=== PATIENT | female | born 1985 | race Hispanic/Latino ===

== ENCOUNTER 2020-05-28 10:08 | Day surgery (SDC) | payer MEDICAID, OTHER ==
[2020-05-28 11:46] LABS: #Monocytes 0.8 10x3/uL (0.0-1.1); #Neutrophils 5.8 10x3/uL (1.5-8.4); %Basophils 0.2 % (0.0-2.0); %Eosinophils 0.5 % (0.0-6.0); %Lymphocytes 23.4 % (18.0-47.0); Mean Corpuscular HGB CONC 34.4 g/dL (32.0-36.0); Mean Corpuscular Hemoglobin 31.3 pg (27.0-33.0); Mean Corpuscular Volume 90.9 fl (81.6-98.3); Mean Platelet Volume 10.3 fl (7.4-10.4); Platelet Count 208 10x3/uL (150-450); RBC Distribution Width 13.9 % (11.5-14.5); Red Blood Cell (RBC) Count 3.84 10x6/uL (3.90-5.03); White Blood Cell (WBC) Count 8.8 10x3/uL (3.5-10.5)
[2020-05-28 11:57] LABS: ALT (SGPT) 15 U/L (8-55); AST (SGOT) 14 U/L (5-34); Albumin 3.2 g/dL (3.5-5.0); Alkaline Phosphatase 98 U/L (40-110); Anion Gap 13 mmol/L (10-20); BUN (Urea Nitrogen) 7 mg/dL (7.0-18.7); Bilirubin, Total 0.2 mg/dL (0.2-1.2); Calc. Creatinine Clearance 0 mL/min (70-130); Calcium 8.8 mg/dL (7.8-10.44); Carbon Dioxide 21 mmol/L (22-29); Chloride 109 mmol/L (98-107); Globulin 3.1 g/dL (2.4-3.5); Glucose 65 mg/dL (70-105); Potassium 3.7 mmol/L (3.5-5.1); Protein, Total 6.3 g/dL (6.0-8.3); Sodium 139 mmol/L (136-145)
[2020-05-28 12:20] VITALS: BMI 30.7
[2020-05-28] MEDS ORDERED: Betamet Acet/Betamet Na Ph 30 MG/5 ML VIAL IM SCH (14:00)
== END 2020-05-28 14:15 | disposition home or self-care (01) ==
LOC: CSHLD/OP 10:08
PROVIDERS: ATTEND Obstetrics & Gynecology
DX: O99.891 Other specified diseases and conditions complicating pregnancy (principal); R03.0 Elevated blood-pressure reading, without diagnosis of hypertension; Z3A.00 Weeks of gestation of pregnancy not specified
CPT/HCPCS: 36415; 80053; 82570; 84156; 85025; 99284; J0702

== ENCOUNTER 2020-05-29 14:01 | Day surgery (SDC) | payer BC, OTHER | END 2020-05-29 15:03 | disposition home or self-care (01) | LOC: CSHLD/OP 14:01 | PROVIDERS: ATTEND Obstetrics & Gynecology | DX: Z29.8 Encounter for other specified prophylactic measures (principal); Z3A.00 Weeks of gestation of pregnancy not specified | CPT/HCPCS: 96372; 99281 ==

== ENCOUNTER 2020-06-02 08:05 | Inpatient (IN) | payer BC, OTHER ==
[2020-06-02 08:32] VITALS: BMI 30.7
[2020-06-02] MEDS ORDERED: hydrALAZINE 20 MG/ML VIAL ONE (08:46)
[2020-06-02] MEDS: hydrALAZINE 20 MG/ML VIAL SLOW IVP PRN ×2 (08:57→23:40)
[2020-06-02] MEDS ORDERED: Magnesium Sulfate 20 gm/500 ml 20 GM/500 ML BAG ONE (09:18)
[2020-06-02] MEDS ORDERED: Calcium Gluc 4.6 MEQ/10 ML (100 MG/ML) SLOW IVP PRN (09:19)
[2020-06-02] MEDS ORDERED: Promethazine HCl 25 MG/ML VIAL IM PRN (09:19)
[2020-06-02] MEDS ORDERED: Butorphanol Tartrate 1 MG/ML VIAL SLOW IVP PRN (09:19)
[2020-06-02] MEDS ORDERED: Ondansetron PF 4 MG/2 ML Vial IVP PRN (09:19)
[2020-06-02] MEDS: Magnesium Sulfate 20 gm/500 ml 20 GM/500 ML BAG IVPB SCH ×2 (09:25→18:00)
[2020-06-02] MEDS ORDERED: Labetalol HCl 100 MG/20 ML VIAL SLOW IVP PRN (09:26)
[2020-06-02] MEDS ORDERED: hydrALAZINE 20 MG/ML VIAL SLOW IVP PRN (09:26)
[2020-06-02] MEDS ORDERED: Magnesium Sulfate 20 GM/WATER 500 ML BAG IVPB SCH (09:30)
[2020-06-02 10:12] LABS: Amphetamine Not Detected (NotDetected); Barbiturates Screen Not Detected (NotDetected); Benzodiazepine Screen Not Detected (NotDetected); Cocaine Metabolite Screen Not Detected (NotDetected); Methadone Not Detected (NotDetected); Methamphetamine Not Detected (NotDetected); Opiate Screen Not Detected (NotDetected); Oxycodone Screen Not Detected (NotDetected); Phencyclidine (PCP) Not Detected (NotDetected); THC/Cannabinoid Screen Not Detected (NotDetected); Tricyclic Screen Not Detected (NotDetected)
[2020-06-02 10:13] LABS: Hemoglobin 11.2 g/dL (12.0-15.5); Mean Corpuscular HGB CONC 33.5 g/dL (32.0-36.0); Mean Corpuscular Hemoglobin 30.3 pg (27.0-33.0); Mean Corpuscular Volume 90.3 fl (81.6-98.3); Mean Platelet Volume 11.5 fl (7.4-10.4); Platelet Count 188 10x3/uL (150-450); RBC Distribution Width 13.6 % (11.5-14.5); White Blood Cell (WBC) Count 12.5 10x3/uL (3.5-10.5)
[2020-06-02 10:19] LABS: ALT (SGPT) 21 U/L (8-55); AST (SGOT) 17 U/L (5-34); Alkaline Phosphatase 92 U/L (40-110); Anion Gap 15 mmol/L (10-20); BUN (Urea Nitrogen) 15 mg/dL (7.0-18.7); Bilirubin, Total 0.2 mg/dL (0.2-1.2); Calc. Creatinine Clearance 155 mL/min (70-130); Calcium 8.3 mg/dL (7.8-10.44); Carbon Dioxide 20 mmol/L (22-29); Chloride 108 mmol/L (98-107); Globulin 2.5 g/dL (2.4-3.5); Glucose 71 mg/dL (70-105); Potassium 3.9 mmol/L (3.5-5.1); Protein, Total 5.5 g/dL (6.0-8.3); Sodium 139 mmol/L (136-145)
[2020-06-02] MEDS ORDERED: Magnesium Sulfate 20 gm/500 ml 4 GM/100 ML BAG IVPB SCH (10:30)
[2020-06-02] MEDS: Acetaminophen 500 MG TAB PO PRN ×3 (10:38→22:06)
[2020-06-02 10:39] LABS: Hep B Surf Ag Non-Reactive S/CO (NonReactive)
[2020-06-02 10:41] LABS: HBSAg Index 0.19 S/CO (0-0.99); Syphilis Antibody Nonreactive (Nonreactive); Syphilis Antibody Index 0.03 S/CO (<1.00 Non-Reactive)
[2020-06-02] MEDS ORDERED: NIFEdipine XL 30 MG TAB PO SCH (16:00)
[2020-06-02] MEDS ORDERED: Zolpidem Tartrate 5 MG TAB PO SCH (23:45)
[2020-06-03 07:03] LABS: Anion Gap 14 mmol/L (10-20)
[2020-06-03] MEDS ORDERED: Misoprostol 200 MCG TAB ONE (07:05)
[2020-06-03 07:07] LABS: ALT (SGPT) 21 U/L (8-55); AST (SGOT) 20 U/L (5-34); Albumin 2.7 g/dL (3.5-5.0); Alkaline Phosphatase 97 U/L (40-110); BUN (Urea Nitrogen) 12 mg/dL (7.0-18.7); Bilirubin, Total 0.3 mg/dL (0.2-1.2); Calcium 6.8 mg/dL (7.8-10.44); Carbon Dioxide 18 mmol/L (22-29); Chloride 104 mmol/L (98-107); Glucose 79 mg/dL (70-105); Potassium 3.7 mmol/L (3.5-5.1); Protein, Total 5.7 g/dL (6.0-8.3); Sodium 132 mmol/L (136-145); Uric Acid 4.8 mg/dL (2.6-6.0)
[2020-06-03 07:10] LABS: #Basophils 0.1 10x3/uL (0.0-0.2); #Monocytes 0.6 10x3/uL (0.0-1.1); #Neutrophils 8.6 10x3/uL (1.5-8.4); %Basophils 0.4 % (0.0-2.0); %Eosinophils 0.3 % (0.0-6.0); %Lymphocytes 17.8 % (18.0-47.0); %Monocytes 5.3 % (0.0-10.0); %Neutrophils 74.4 % (40.0-75.0); Hemoglobin 13.2 g/dL (12.0-15.5); Mean Corpuscular HGB CONC 34.7 g/dL (32.0-36.0); Mean Corpuscular Hemoglobin 30.9 pg (27.0-33.0); Mean Platelet Volume 10.6 fl (7.4-10.4); Platelet Count 226 10x3/uL (150-450); RBC Distribution Width 13.7 % (11.5-14.5); Red Blood Cell (RBC) Count 4.27 10x6/uL (3.90-5.03); White Blood Cell (WBC) Count 11.6 10x3/uL (3.5-10.5)
[2020-06-03 07:12] LABS: Calc. Creatinine Clearance 155 mL/min (70-130)
[2020-06-03] MEDS: Magnesium Sulfate 20 gm/500 ml 20 GM/500 ML BAG IVPB SCH ×2 (07:25→22:06)
[2020-06-03] MEDS ORDERED: Bicitra 30 ML UDCUP ONE (08:29)
[2020-06-03] MEDS ORDERED: Carboprost 250 MCG/ML AMP ONE (08:30)
[2020-06-03] MEDS ORDERED: Heparin 1 UNITS/ML SYRINGE (NICU) ONE (08:48)
[2020-06-03] MEDS ORDERED: NIFEdipine XL 30 MG TAB PO SCH (09:00)
[2020-06-03] MEDS ORDERED: PHENYLEPHRINE-NS 100 MCG/ML 10 ML SYRINGE ONE (09:30)
[2020-06-03] MEDS ORDERED: Morphine PF 10 MG/10 ML VIAL ONE (09:32)
[2020-06-03 09:39] LABS: Urine Total Volume 800 mL (600-1600)
[2020-06-03 09:50] LABS: Protein - 24 Hr 1336 mg/24 hr (Less than 300); Protein, Urine 167 mg/dL (1-14)
[2020-06-03 09:51] LABS: Creatinine, Urine 102.49 mg/dL (47-110)
[2020-06-03] MEDS ORDERED: HYDROmorphone 2 MG/ML VIAL SLOW IVP PRN (10:21)
[2020-06-03] MEDS ORDERED: Ondansetron HCl/PF 4 MG/2 ML Vial IVP PRN (10:21)
[2020-06-03] MEDS ORDERED: L&D-Morphine 4 MG/ML VIAL SLOW IVP PRN (10:21)
[2020-06-03] MEDS ORDERED: Meperidine HCl/PF 25 MG/ML VIAL SLOW IVP PRN (10:21)
[2020-06-03] MEDS ORDERED: Naloxone HCl 0.4 mg/ml Vial IVP PRN ×2 (10:22)
[2020-06-03] MEDS ORDERED: Naloxone HCl 0.4 mg/ml Vial IV PRN (10:22)
[2020-06-03] MEDS ORDERED: Promethazine HCl 25 MG/ML VIAL IM PRN (10:22)
[2020-06-03] MEDS ORDERED: diphenhydrAMINE 50 MG/ML VIAL IVP PRN (10:22)
[2020-06-03] MEDS ORDERED: Promethazine HCl 25 MG SUPP PR PRN (10:22)
[2020-06-03] MEDS ORDERED: Ketorolac Tromethamine 30 MG/ML VIAL IVP PRN (10:22)
[2020-06-03] MEDS ORDERED: Ondansetron PF 4 MG/2 ML Vial IVP PRN (10:22)
[2020-06-03] MEDS ORDERED: NS w/ Oxytocin 30 units 500 ML ONE (10:29)
[2020-06-03] MEDS ORDERED: Communication Order-Pharmacy FS SCH (10:30)
[2020-06-03] MEDS ORDERED: Ketorolac Tromethamine 30 MG/ML VIAL IVP SCH (10:30)
[2020-06-03 10:40] LABS: RapidComm Collect By NURSE; pH (Cord, venous) 7.308 (7.250-7.350)
[2020-06-03] MEDS ORDERED: Hydrocerin (Eucerin) Cream 120 gm Jar TOP PRN (10:42)
[2020-06-03] MEDS ORDERED: Furosemide 100 MG/10 ML VIAL ONE (10:43)
[2020-06-03] MEDS ORDERED: Famotidine/PF 20 mg/2ml Vial SLOW IVP PRN (11:00)
[2020-06-03] MEDS ORDERED: Bicitra 30 ML UDCUP PO PRN (11:00)
[2020-06-03] MEDS ORDERED: CEFAZOLIN 2 GM in Premix Bag 1 BAG IVPB SCH (11:00)
[2020-06-03] MEDS ORDERED: HYDROcodone/Acetaminophen 5/325 mg Tablet PO PRN (11:03)
[2020-06-03] MEDS ORDERED: Bisacodyl 10 MG SUPP PR PRN (11:03)
[2020-06-03] MEDS ORDERED: Milk Of Magnesia 30 ML UDCUP PO PRN (11:03)
[2020-06-03] MEDS ORDERED: Adacel (T-DAP) 0.5 ML SYRINGE IM ONE (11:03)
[2020-06-03] MEDS ORDERED: Furosemide 40 MG/4 ML VIAL SLOW IVP SCH (11:15)
[2020-06-03] MEDS ORDERED: NS w/ Oxytocin 30 units 500 ML IV SCH (12:45)
[2020-06-03 13:29] LABS: HIV (1/2) Antibody/Antigen Non-Reactive (NonReactive); HIV 1/2 INDEX 0.06 S/CO (<1.00)
[2020-06-03] MEDS: Ferrous Sulfate 325 MG TAB PO SCH (17:15)
[2020-06-03] MEDS: Docusate Calcium (SURFAK) 240 MG CAP PO SCH (21:16)
[2020-06-03] MEDS: Labetalol 100 MG TAB PO SCH (21:17)
[2020-06-04] MEDS: Magnesium Sulfate 20 gm/500 ml 20 GM/500 ML BAG IVPB SCH (05:00)
[2020-06-04] MEDS: Docusate Calcium (SURFAK) 240 MG CAP PO SCH ×2 (07:24→21:11)
[2020-06-04] MEDS: Labetalol 100 MG TAB PO SCH ×2 (07:24→21:11)
[2020-06-04] MEDS: Ferrous Sulfate 325 MG TAB PO SCH (08:50)
[2020-06-04 13:01] LABS: Hemoglobin 10.9 g/dL (12.0-15.5)
[2020-06-04] MEDS: Ibuprofen 800 MG TAB PO SCH ×2 (14:37→21:15)
[2020-06-04] MEDS: HYDROcodone/Acetaminophen 5/325 mg Tablet PO PRN (14:38)
[2020-06-05] MEDS: Ibuprofen 800 MG TAB PO SCH ×3 (05:25→21:29)
[2020-06-05] MEDS: Labetalol 100 MG TAB PO SCH ×2 (08:14→21:30)
[2020-06-05] MEDS: Docusate Calcium (SURFAK) 240 MG CAP PO SCH ×2 (08:14→21:29)
[2020-06-05] MEDS: HYDROcodone/Acetaminophen 5/325 mg Tablet PO PRN ×2 (08:14→12:30)
[2020-06-05] MEDS: Ferrous Sulfate 325 MG TAB PO SCH (10:02)
[2020-06-06] MEDS: Ibuprofen 800 MG TAB PO SCH ×2 (05:03→14:17)
[2020-06-06] MEDS: Ferrous Sulfate 325 MG TAB PO SCH ×2 (07:57→16:11)
[2020-06-06] MEDS: Labetalol 100 MG TAB PO SCH (08:56)
[2020-06-06] MEDS: Docusate Calcium (SURFAK) 240 MG CAP PO SCH (08:56)
[2020-06-06] MEDS: HYDROcodone/Acetaminophen 5/325 mg Tablet PO PRN ×2 (08:56→14:19)
[2020-06-06 17:28] VITALS: TEMP 98.5
[2020-06-06 17:36] VITALS: BP 138/84
== END 2020-06-06 18:30 | disposition home or self-care (01) | DRG 788 ==
LOC: CSHLD/OP 08:05 → CSHLD 10:06 → CSHANTE 06-03 21:45
PROVIDERS: ADMIT Obstetrics & Gynecology; ATTEND Obstetrics & Gynecology
PROC: 10D00Z1 Extraction of Products of Conception, Low, Open Approach (ICD-10-PCS; principal; 2020-06-03)
PROC: 4A0HXCZ Measurement of Products of Conception, Cardiac Rate, External Approach (ICD-10-PCS; 2020-06-03)
DX: O14.14 Severe pre-eclampsia complicating childbirth (principal); O60.13X0 Preterm labor second trimester with preterm delivery third trimester, not applicable or unspecified; Z3A.30 30 weeks gestation of pregnancy; Z37.0 Single live birth
CPT/HCPCS: 36415; 36416; 51702; 76819; 80053; 80306; 82570; 82805; 83735; 84156; 84550; 85014; 85018; 85025; 85027; 86780; 86850; 86900; 86901; 87340; 87389; 88307; 99285; J0360; J0690; J1885; J1940; J2274; J3475